=== PATIENT | female | born 1995 ===

== ENCOUNTER 2018-08-10 18:18 | Emergency (ER) | payer BC ==
--- NOTE | 2018-08-10 19:09 | EDM.PDOC ---
ED HPI GENERAL MEDICAL PROBLEM - General Chief Complaint: Lower Extremity Injury/Pain Stated Complaint: LT FOOT TWISTED AND IS 6MOS PREP Time Seen by Provider: 08/10/18 19:07 Source of Information: Reports: Patient History Limitations: Reports: No Limitations - History of Present Illness INITIAL COMMENTS - FREE TEXT/NARRATIVE: HISTORY AND PHYSICAL: []22-year-old female presenting with ankle injury History of Present Illness: []Patient was getting out of her pickup and rolled her left ankle Review of Systems: As per history of present illness and below otherwise all systems reviewed and negative. Past medical history: As per history of present illness and as reviewed below otherwise noncontributory. Surgical history: As per history of present illness and as reviewed below otherwise noncontributory. Social history: No reported history of drug or alcohol abuse. Family history: As per history of present illness and as reviewed below otherwise noncontributory. Physical exam: An alert and oriented female who is answering questions in full sentences. She is 6 months . HEENT: Atraumatic, normocehpalic, pupils reactive, negative for conjunctival pallor or scleral icterus, mucous membranes moist, throat clear, neck supple, nontender, trachea midline. Lungs: Clear to auscultation, breath sounds equal bilaterally, chest non tender. Heart: S1S2, regular, negative for clicks, rubs, or JVD. Abdomen: Soft, nondistended, nontender. Negative for masses or hepatossplenmegaly. Negative for costovertebral tenderness. Pelvis: Stable nontender. Genitourinary: Deferred. Rectal: Deferred Extremities: Mild edema noted to the lateral malleolus left , negative for cords or calf pain. Neurovascular unremarkable. Neuro: Awake, alert, oriented. Cranial nerves II through XII unremarkable. Cerebellum unremarkable. Motor and sensory unremarkable throughout. Exam nonfocal. Diagnostics: []ankle xray Therapeutics: []Michael wrap Impression: []Ankle sprain Plan: []Discharge home Follow up with your primary care provider Elevate ice Tylenol for discomfort Definitive disposition and diagnosis as appropriate pending reevaluation and review of above. Onset: Today, Sudden Left Ankle Pain Score (Numeric/FACES): 8 - Related Data Allergies Allergy/AdvReac Type Severity Reaction Status Date / Time pineapple Allergy Hives Verified 08/10/18 18:35 Home Meds: Home Meds Vit #108/Iron/FA [ One Tablet] 1 tab PO DAILY 03/26/16 [History ] Past Medical History - Past Health History Medical/Surgical History: Denies Medical/Surgical History HEENT History: Other HEENT History: wears glasses/contacts Cardiovascular History: Reports: None Respiratory History: Reports: None Gastrointestinal History: Reports: Other (See Below) Other Gastrointestinal History: occasional heartburn with Genitourinary History: Reports: UTI, Recurrent [employer]ANT History: Reports: Musculoskeletal History: Reports: None Neurological History: Reports: None Psychiatric History: Reports: Other (See Below) Other Psychiatric History: Depression Endocrine/Metabolic History: Reports: None Hematologic History: Reports: None Immunologic History: Reports: None Oncologic (Cancer) History: Reports: None Dermatologic History: Reports: None - Infectious Disease History Infectious Disease History: Reports: None - Past Surgical History Head Surgeries/Procedures: Reports: None Female Surgical History: Reports: Section Social & Family History - Family History Family Medical History: Noncontributory - Tobacco Use Smoking Status *Q: Never Smoker - Caffeine Use Caffeine Use: Reports: Coffee, Soda - Recreational Drug Use Recreational Drug Use: No Review of Systems - Review of Systems Review Of Systems: ROS reveals no pertinent complaints other than HPI. ED EXAM, GENERAL - Physical Exam Exam: See Below Course - Vital Signs Last Recorded V/S: Last Vital Signs Temp 36.0 C 08/10/18 18:35 Pulse 88 08/10/18 18:35 Resp 15 08/10/18 18:35 BP 131/69 08/10/18 18:35 Pulse Ox 98 08/10/18 18:35 - Orders/Labs/Meds Orders: Active Orders 24 hr Category Date Time Status Ankle Min 3V Lt [CR] Stat Exams 08/10/18 19:04 Taken DME for Discharge [COMM] Stat Oth 08/10/18 20:07 Ordered Departure - Departure Time of Disposition: 20:08 Disposition: Home, Self-Care 01 Condition: Good Clinical Impression: Sprain and strain of ankle - Discharge Information Instructions: Ankle Sprain Referrals: PCP,None [Primary Care Provider] - Forms: ED Department Discharge Additional Instructions: The following information is given to patients seen in the emergency department who are being discharged to home. This information is to outline your options for follow-up care. We provide all patients seen in our emergency department with a follow-up referral. The need for follow-up, as well as the timing and circumstances, are variable depending upon the specifics of your emergency department visit. If you don't have a primary care physician on staff, we will provide you with a referral. We always advise you to contact your personal physician following an emergency department visit to inform them of the circumstance of the visit and for follow-up with them and/or the need for any referrals to a consulting specialist. The emergency department will also refer you to a specialist when appropriate. This referral assures that you have the opportunity for followup care with a specialist. All of these measure are taken in an effort to provide you with optimal care, which includes your followup. Under all circumstances we always encourage you to contact your private physician who remains a resource for coordinating your care. When calling for followup care, please make the office aware that this follow-up is from your recent emergency room visit. If for any reason you are refused follow-up, please contact the [facility] emergency department at and asked to speak to the emergency department charge nurse. Discharge home Follow up with your primary care provider Elevate ice Tylenol for discomfort - My Orders Last 24 Hours: My Active Orders 08/10/18 19:04 Ankle Min 3V Lt [CR] Stat 08/10/18 20:07 DME for Discharge [COMM] Stat - Assessment/Plan Last 24 Hours: My Active Orders 08/10/18 19:04 Ankle Min 3V Lt [CR] Stat 08/10/18 20:07 DME for Discharge [COMM] Stat
[2018-08-10 20:20] VITALS: BP 113/58
--- NOTE | 2018-08-11 10:48 | CR ---
EXAM DATE: 08/10/18 PATIENT'S AGE: 22 Patient: DENISE HIDALGO Facility: [place], [place] Site . Site : 1995 Study: XRay Extremity Left Ankle [id number]/12/2018 7:34:36 PM Ordering Physician: Doctor Mccarty Final Report: INDICATION: Injury, rolled ankle. TECHNIQUE: Three views. FINDINGS: There is no radiographic evidence of fracture/dislocation/acute bone or joint abnormality. Bone density is well maintained. Dictated by Aston Bloom MD @ Aug 10 2018 7:46PM (Electronic Signature) Report Signed by Proxy. GAEL
== END 2018-08-10 20:18 | disposition home or self-care (01) ==
LOC: MW.ED 18:18
DX: O9A.212 Injury, poisoning and certain other consequences of external causes complicating pregnancy, second trimester (principal); S93.402A Sprain of unspecified ligament of left ankle, initial encounter; S96.912A Strain of unspecified muscle and tendon at ankle and foot level, left foot, initial encounter; Z91.018 Allergy to other foods; X50.1XXA Overexertion from prolonged static or awkward postures, initial encounter
CPT/HCPCS: 73610-26-LT; 73610-LT; 99283

== ENCOUNTER 2025-08-22 12:21 | Emergency (ER) | payer BC ==
[2025-08-22 14:58] VITALS: BP 104/60; PULSE 84
== END 2025-08-22 14:58 | disposition home or self-care (01) ==
LOC: MW.ED 12:21
DX: S49.81XA Other specified injuries of right shoulder and upper arm, initial encounter (principal); F17.200 Nicotine dependence, unspecified, uncomplicated; Z91.018 Allergy to other foods; X58.XXXA Exposure to other specified factors, initial encounter
CPT/HCPCS: 73000-26-RT; 73000-RT; 73030-26-RT; 73030-RT; 99283